=== PATIENT | male | born 1960 | race Two or more races ===

== ENCOUNTER 2021-10-24 09:44 | Emergency (ER) | payer MEDICAID, OTHER ==
[~2021-10-24] VITALS: Ht 167.6 cm; Wt 81.6 kg
[2021-10-24] MEDS ORDERED: PANTOPRAZOLE 40 MG/10 ML VIAL INJ IV ONE (10:15)
[2021-10-24 10:23] LABS: Basophils # (auto) 0 10 ^3/uL (0-0.2); Basophils % (auto) 0.3 % (0.0-2.0); Eosinophils # (auto) 0 10 ^3/uL (0-0.8); Eosinophils % (auto) 0.3 % (0.0-7.0); Hematocrit 47.4 % (41.0-53.0); Lymphocytes # (auto) 1.5 10 ^3/uL (0.4-5.4); Lymphocytes % (auto) 11.3 % (10.0-50.0); Mean Corpuscular Hemoglobin 29.8 pg (28.0-32.0); Mean Corpuscular Hgb Conc. 33.7 g/dL (32.0-36.0); Mean Corpuscular Volume 88.4 fL (80.0-100.0); Monocytes # (auto) 0.6 10 ^3/uL (0-1.3); Monocytes % (auto) 4.5 % (0.0-12.0); Neutrophils # (auto) 11.1 10 ^3/uL (1.6-8.6); Neutrophils % (auto) 83.6 % (37.0-80.0); Nucleated Red Blood Cells % 0.1 %; Red Blood Cells 5.36 10^6/uL (4.5-5.90); Red Cell Distribution Width 13.3 % (11.8-14.3); White Blood Cell 13.2 10^3/uL (4.4-10.8)
[2021-10-24 10:42] LABS: Calcium 9.1 mg/dL (8.5-10.1); Potassium 3.7 mmol/L (3.5-5.1)
[2021-10-24 10:53] LABS: BUN/Creatinine Ratio 23.8; Bilirubin, Total 1.2 mg/dL (0.2-1.0); Total Protein 7.8 g/dL (6.4-8.2)
[2021-10-24 11:41] LABS: Urine Bacteria NONE SEEN /hpf (None Seen); Urine Blood Negative /uL (Negative); Urine WBC <1 /hpf (0 - 3)
[2021-10-24] MEDS ORDERED: METR500T PO (11:54)
[2021-10-24] MEDS ORDERED: CEPH-509 PO (11:54)
[2021-10-24 12:30] VITALS: BP 146/86
== END 2021-10-24 12:34 | disposition home or self-care (01) ==
LOC: ER 09:44
DX: K29.70 Gastritis, unspecified, without bleeding (principal); D72.829 Elevated white blood cell count, unspecified; K80.80 Other cholelithiasis without obstruction; Z88.8 Allergy status to other drugs, medicaments and biological substances
CPT/HCPCS: 36415; 74176; 80053; 81001; 83690; 84484; 85025; 93005; 96374; 99285; C9113